=== PATIENT | female | born 1995 | race Caucasian/White ===

== ENCOUNTER 2023-05-16 12:02 | Emergency (ER) | payer MEDICAID, OTHER ==
[~2023-05-16] VITALS: Ht 157.5 cm; Wt 63.5 kg
[2023-05-16 12:18] VITALS: BP 115/70; PULSE 78; RESP 17; TEMP 97.7; O2SAT 99
[2023-05-16] MEDS ORDERED: KETOROLAC 30 MG/ML VIAL IM ONE (12:35)
[2023-05-16] MEDS ORDERED: CYCL-711 PO (13:00)
[2023-05-16] MEDS ORDERED: NAPR-54 PO (13:00)
[2023-05-16] MEDS ORDERED: AMOX500C25 PO (13:03)
[2023-05-16 13:30] VITALS: BP 113/56; PULSE 74; RESP 17; O2SAT 98
--- NOTE | 2023-05-16 13:31 | NUR ---
Patient discharged with v/s stable. Written and verbal after care instructions given and explained. Patient alert, oriented and verbalized understanding of instructions. Ambulatory with steady gait. All questions addressed prior to discharge. ID band removed. Patient advised to follow up with PMD. Rx of AMOXICILLIN, FLEXERIL given. Patient educated on indication of medication including possible reaction and side effects. Opportunity to ask questions provided and answered.
== END 2023-05-16 13:24 | disposition home or self-care (01) ==
LOC: MED 12:02
DX: H92.02 Otalgia, left ear (principal); Z79.899 Other long term (current) drug therapy
CPT/HCPCS: 81025; 96372; 99283; J1885

== ENCOUNTER 2023-06-20 19:26 | Emergency (ER) | payer OTHER ==
[~2023-06-20] VITALS: Ht 154.9 cm; Wt 61.2 kg
[~2023-06-20 19:26] MED LIST: AMOX500C25 PO; CYCL-711 PO; NAPR-54 PO
[2023-06-20 19:40] VITALS: BP 120/78; PULSE 129; RESP 20; TEMP 100.1; O2SAT 98
--- NOTE | 2023-06-20 19:40 | NUR ---
PT IS AT THE CHAIR B
[2023-06-20] MEDS ORDERED: ACETAMINOPHEN EXTRA STRENGTH 500 MG TAB PO ONE (19:50)
[2023-06-20] MEDS ORDERED: ACETAMINOPHEN 325 MG TAB PO ONE (19:50)
--- NOTE | 2023-06-20 20:00 | NUR ---
EXAMINING THE PT
[2023-06-20] MEDS ORDERED: ACET-10509 PO (20:47)
[2023-06-20 21:00] VITALS: BP 120/78; PULSE 100; RESP 20; TEMP 37.16964; O2SAT 98
== END 2023-06-21 00:16 | disposition home or self-care (01) ==
LOC: MED 19:26
DX: U07.1 COVID-19 (principal); Z79.899 Other long term (current) drug therapy; Z79.1 Long term (current) use of non-steroidal anti-inflammatories (NSAID); Z79.2 Long term (current) use of antibiotics
CPT/HCPCS: 99283